=== PATIENT | female | born 1985 | race Caucasian/White ===

== ENCOUNTER → 2019-06-21 15:28 | Outpatient (CLI) | payer OTHER, SELFPAY ==
--- NOTE | ~2019-06-21 | US_ITS ---
EXAMINATION: US soft tissue abdomen DATE: 06/21/2019 15:55 INDICATION: Umbilical hernia with intermittently protruding mass in the region of the umbilicus. TECHNIQUE: Multiple grayscale and Doppler ultrasound images of the abdomen at the region of concern a t the umbilicus were obtained. COMPARISON: None FINDINGS: Fat-containing umbilical hernia measuring 3.1 x 1.1 x 3.0 cm which extends through approximately 4-5 mm diameter orifice. No peristalsing bowel identified within the hernia sac. IMPRESSION: 1. Small fat-containing umbilical hernia. Reviewed, dictated and finalized at location A. [employer]ON MANAGER
== END ==
PROVIDERS: PCP Emergency Medicine; Visit Provider Emergency Medicine
DX: K42.9 Umbilical hernia without obstruction or gangrene (principal)
CPT/HCPCS: 76705

== ENCOUNTER 2020-03-08 12:13 | Outpatient (CLI) | payer OTHER, SELFPAY ==
[2020-03-09 14:52] LABS: SARS-CoV-2 RNA PCR Negative
== END 2020-03-08 12:14 | disposition home or self-care (01) ==
LOC: CHSLAB 12:21
PROVIDERS: PCP Emergency Medicine; Visit Provider Emergency Medicine
DX: Z20.828 Contact with and (suspected) exposure to other viral communicable diseases (principal)
CPT/HCPCS: 87635; C9803; U0003

== ENCOUNTER 2021-11-06 17:39 | Emergency (ER) | payer OTHER, SELFPAY ==
--- NOTE | 2021-11-06 17:55 | ED.DIZZY ---
HPI - Dizziness General Chief Complaint: Dizziness Stated Complaint: dizzy, tunnel vision, arms numb Time Seen by Provider: 11/06/21 17:55 Source: patient History of Present Illness HPI Narrative: 35 old female with a past history history of anxiety was working on a computer when she developed -- tunneled vision -- tremulousness -- numbness and tingling of her hands -- Lightheadedness which improved -- nausea with 2 episodes vomiting she denied chest pain or shortness of breath she denied any focal neuro deficits. had diarrhea with 2 episodes of loose stools today MD elicited complaint: lightheadedness Onset (ago): hour(s) ( started 1 hour ago with significant improvement) Timing: sudden onset Description: lightheadedness History of similar symptoms: Yes Exacerbating factors: nothing and change in body position Relieving factors: nothing Associated symptoms: nausea, vomiting and weakness Related Data Home Medications Medication Instructions Recorded Confirmed No Home Medications 11/06/21 11/06/21 Allergies Allergy/AdvReac Type Severity Reaction Status Date / Time No Known Allergies Allergy Unverified 11/06/21 18:17 Review of Systems Review of Systems: All systems reviewed & are unremarkable except as noted in HPI and below Constitutional: Constitutional: Reports as per HPI and Reports no additional constitutional complaints Eyes: Eyes: Reports as per HPI and Reports no additional eye complaints ENT: Reports system reviewed and no additional complaints, except as documented and Reports as per HPI Cardiovascular: Cardiovascular: Reports as per HPI and Reports no additional cardiovascular complaints Respiratory: Respiratory: Reports as per HPI and Reports no additional respiratory complaints Gastrointestinal: Gastrointestinal: Reports as per HPI, Reports no additional gastrointestinal complaints, Reports diarrhea, Reports nausea and Reports vomiting Genitourinary: Genitourinary: Reports no additional female genitourinary complaints Musculoskeletal: Musculoskeletal: Reports no additional musculoskeletal complaints and Reports as per HPI Integumentary/Breasts: Skin/Breast: Reports system reviewed and no additional complaints, except as docu and Reports as per HPI Neurologic: Reports system reviewed and no additional complaints, except as documented, Reports as per HPI, Reports dizziness, Reports numbness and Reports weakness Psychiatric: Psychiatric: Reports no additional psychiatric complaints, Reports as per HPI and Reports anxiety Endocrine: Endocrine: Reports no additional endocrine complaints and Reports as per HPI Hematologic/Lymphatic: Hematologic/Lymphatic: Reports no additional hematologic/lymphatic complaints and Reports as per HPI Allergic/Immunologic: Allergic/Immunologic: Reports no additional allergic/immunologic complaints and Reports as per [facility] Surgical History Surgical History Previous section Exam Const: General: healthy appearing, no acute distress and alert Nutritional Appearance: well nourished Orientation/consciousness: patient oriented x3 Limitations: no limitations Other: not orthostatic HENMT: Head: normal to inspection General nose exam: Normal external nose present Face and sinus: normal facial exam Mouth: Yes Normal oral and palatal mucosa present Throat: posterior oropharynx normal Eyes: Conjunctivae: conjunctivae normal Pupils: Equal, round and reactive pupils present EOM: EOMs intact bilaterally Neck: Neck: normal visual inspection Chest: Chest palpation & inspection: normal inspection of the chest Resp: Effort & Inspection: normal respiratory effort Auscultation: clear to auscultation bilaterally Cardio: Rate: regular rate Rhythm: regular rhythm GI: Auscultation: normal bowel sounds : General: Yes no CVA tenderness Back/Spine/Pelvis: Back: no CVA tenderness Skin: G
[2021-11-06 18:01] VITALS: BP 135/99; PULSE 116; RESP 20; TEMP 37.2; O2SAT 98
--- NOTE | 2021-11-06 18:35 | ECG_ITS ---
Measurements Intervals [place] Rate: 102 P: 20 ND: 140 QRS: 11 QRSD: 89 T: 32 QT: 351 QTc: 458 Interpretive Statements SINUS TACHYCARDIA MINIMAL Q WAVES- HIGH LATERAL LEADS BORDERLINE ECG Electronically Signed On 11-06-2021 19:50:36 CDT by Zackary Mendiola D.O.
[2021-11-06 19:28] LABS: Basophils Absolute Auto 0.03 K/mm3 (0.00-0.10); Basophils Percent Auto 0.4 % (0.0-1.0); Eosinophils Absolute Auto 0.12 K/mm3 (0.02-0.50); Eosinophils Percent Auto 1.7 % (1.0-6.0); Hematocrit 37.8 % (35.0-49.0); Hemoglobin 12.6 g/dL (12.0-15.0); Immature Granulocyte Absolute 0.03 K/mm3 (0.00-0.00); Immature Granulocyte Percent A 0.4 % (0.0-0.0); Lymphocytes Absolute Auto 1.46 K/mm3 (1.10-4.50); Lymphocytes Percent Auto 20.2 % (18.0-42.0); Mean Corpuscular HGB Conc 33.3 g/dL (32.0-36.0); Mean Corpuscular Hemoglobin 28.3 pg (27.0-31.0); Mean Corpuscular Volume 84.9 fL (78.0-102.0); Mean Platelet Volume 11.6 fl (9.2-11.8); Monocytes Absolute Auto 0.42 K/mm3 (0.10-0.90); Monocytes Percent Auto 5.8 % (2.0-11.0); Neutrophils Absolute Auto 5.2 K/mm3 (1.7-7.2); Neutrophils Percent Auto 71.5 % (50.0-70.0); Platelet Count Result 184 K/mm3 (150-420); Red Blood Count 4.45 M/mm3 (4.20-5.40); Red Cell Distribution Width 13.2 % (11.6-14.4); White Blood Count 7.2 K/mm3 (4.8-10.8)
[2021-11-06 19:41] LABS: INR 0.9; Prothrombin Time 10.2 Seconds (9.50-12.10)
[2021-11-06 19:55] LABS: Alanine Aminotransferase 35 U/L (14-59); Albumin Level 3.4 g/dL (3.4-5.0); Alkaline Phosphatase 79 U/L (46-116); Anion Gap 8 mmol/L (8-16); Aspartate Amino Transferase 18 U/L (15-37); Bilirubin,Total 0.2 mg/dL (0.00-1.00); Blood Urea Nitrogen 16 mg/dL (7-18); Calcium 8.6 mg/dL (8.5-10.1); Carbon Dioxide 24 mmol/L (21-32); Chloride 104 mmol/L (98-108); Estimated CRCL calculation 65 ml/min; Estimated Glomerular Filt Rate 59; Glucose 167 mg/dL (70-99); Osmolality Calculated 287 mOsm/kg (285-295); Potassium 3.2 mmol/L (3.5-5.1); Sodium 136 mmol/L (136-145); Total Protein 7.3 g/dL (6.4-8.2); Troponin I 5.3 ng/L (0.00-60.4)
[2021-11-06 19:56] LABS: Thyroid Stimulating Hormone 1.82 uIU/mL (0.36-3.74)
[2021-11-06] MEDS: SPIRONOLACTONE 25 MG TABLET PO (20:21)
[2021-11-06] MEDS: POTASSIUM CHLORIDE 20 MEQ TABLET 40 MEQ PO (20:21)
[2021-11-06 20:54] VITALS: BP 137/91; PULSE 93; RESP 18; TEMP 37
== END 2021-11-06 20:56 | disposition home or self-care (01) ==
PROVIDERS: Emergency Provider Internal Medicine Critical Care Medicine
DX: F41.9 Anxiety disorder, unspecified (principal); E87.6 Hypokalemia
CPT/HCPCS: 36415; 80053; 83605; 84443; 84484; 85025; 85610; 93005; 99284; A9270

== ENCOUNTER 2023-10-07 15:28 | Emergency (ER) | payer OTHER, SELFPAY ==
--- NOTE | ~2023-10-07 | XR_ITS ---
XR chest 1V portable Ordering provider: Dax Vargas MD History: 37 years Female with . Covid positive . Comparison: None. FINDINGS: MEDIASTINUM: The cardiac silhouette is not enlarged. LUNGS: No infiltrates, effusions or pneumothorax. OTHER: No free air under the diaphragm. IMPRESSION: No acute cardiopulmonary pathology. Reviewed, dictated and finalized at location A.
[2023-10-07 15:28] VITALS: BP 140/100; PULSE 112; RESP 18; TEMP 36.7; O2SAT 96
--- NOTE | 2023-10-07 15:31 | ED.SOB ---
HPI - SOB/Dyspnea General Chief Complaint: Upper Respiratory Infection Stated Complaint: shortness of breath Time Seen by Provider: 10/07/23 15:28 Source: patient Mode of arrival: ambulatory Limitations: no limitations History of Present Illness HPI Narrative: 37-year-old female with no significant past medical history tested positive for COVID at an urgent care in [facility] 5 days ago. She was prescribed Paxil with. She presents to the ER with ongoing -- nonproductive cough -- weakness -- patient noted oxygen saturation to be low at home but currently she is saturating 96% on room air. She denies shortness of breath. the patient is afebrile oxygen saturation of 96% on room air with a respiratory rate of 18. MD elicited complaint: cough Pertinent past history: other ( tested positive for COVID 5 days ago) Onset (ago): day(s) ( Five days) Context: recent illness Timing: constant Exacerbating factors: nothing Relieving factors: nothing Treatment prior to arrival: none Related Data Home oxygen amount: none Home Medications Medication Instructions Recorded Confirmed escitalopram oxalate 5 mg tablet 5 mg PO DAILY 10/07/23 10/07/23 Allergies Allergy/AdvReac Type Severity Reaction Status Date / Time No Known Allergies Allergy Verified 10/07/23 15:51 Review of Systems Review of Systems: All systems reviewed & are unremarkable except as noted in HPI and below Constitutional: Constitutional: Reports as per HPI and Reports no additional constitutional complaints Eyes: Eyes: Reports as per HPI and Reports no additional eye complaints ENT: Reports system reviewed and no additional complaints, except as documented and Reports as per HPI Cardiovascular: Cardiovascular: Reports as per HPI and Reports no additional cardiovascular complaints Respiratory: Respiratory: Reports as per HPI, Reports no additional respiratory complaints and Reports dyspnea Gastrointestinal: Gastrointestinal: Reports as per HPI, Reports no additional gastrointestinal complaints and Reports nausea Genitourinary: Genitourinary: Reports no additional female genitourinary complaints and Reports as per HPI Comments: Status post tubal ligation Musculoskeletal: Musculoskeletal: Reports no additional musculoskeletal complaints and Reports as per HPI Integumentary/Breasts: Skin/Breast: Reports system reviewed and no additional complaints, except as docu and Reports as per HPI Neurologic: Reports system reviewed and no additional complaints, except as documented and Reports as per HPI Psychiatric: Psychiatric: Reports no additional psychiatric complaints and Reports as per HPI Endocrine: Endocrine: Reports no additional endocrine complaints and Reports as per HPI Hematologic/Lymphatic: Hematologic/Lymphatic: Reports no additional hematologic/lymphatic complaints and Reports as per HPI Allergic/Immunologic: Allergic/Immunologic: Reports no additional allergic/immunologic complaints and Reports as per HPI [facility] Surgical History Surgical History Previous section Exam Narrative: blood pressure 140/100. Pulse is 112. Stable oxygenation with a respiratory rate of 18 Const: General: healthy appearing and no acute distress Nutritional Appearance: well nourished Orientation/consciousness: patient oriented x3 Limitations: no limitations HENMT: Head: normal to inspection Ears: external ears normal Face/Nose/Sinus: Normal external nose present Face and sinus: normal facial exam Mouth: Yes Normal oral and palatal mucosa present Throat: posterior oropharynx normal Eyes: Conjunctivae: conjunctivae normal Pupils: Equal, round and reactive pupils present EOM: EOMs intact bilaterally Direct Ophthalmoscopy: no photophobia Neck: Neck: normal visual inspection, no lymphadenopathy and no meningeal signs Chest: Chest palpation & inspection: normal inspection of the
[2023-10-07 15:54] LABS: Pregnancy On Board Control Positive; Urine Pregnancy Test Negative
[2023-10-07 17:20] VITALS: BP 128/72; PULSE 78; RESP 18; O2SAT 97
--- NOTE | 2023-10-07 17:30 | PC.NURSE ---
1630- PT IS WALKING AROUND AND TALKING ON CELL PHONE WITHOUT DISTRESS. PT IS AWAITING RESULTS. WILL CONTINUE TO MONITOR.
== END 2023-10-07 17:20 | disposition home or self-care (01) ==
PROVIDERS: Emergency Provider Internal Medicine Critical Care Medicine; PCP Family Medicine
DX: U07.1 COVID-19 (principal)
CPT/HCPCS: 71045; 81025; 99283